=== PATIENT | male | born 1980 | race Caucasian/White ===

== ENCOUNTER → 2016-12-01 | Outpatient (REF) | payer OTHER | LOC: M LAB REF 16:52 | PROVIDERS: ATTEND Internal Medicine Nephrology | DX: R80.9 Proteinuria, unspecified (principal) ==

== ENCOUNTER → 2017-05-31 | Outpatient (REF) | payer OTHER ==
[2017-05-31 19:17] LABS: TOTAL PROTEIN,RANDOM URINE 24.4 MG/DL (0.0-12.0)
== END ==
LOC: M LAB REF 16:56
DX: R80.9 Proteinuria, unspecified (principal); N08 Glomerular disorders in diseases classified elsewhere
CPT/HCPCS: 84156

== ENCOUNTER → 2017-09-16 | Outpatient (REF) | payer OTHER ==
[2017-09-16 19:34] LABS: TOTAL PROTEIN,RANDOM URINE 30.9 MG/DL (0.0-12.0)
== END ==
LOC: M LAB REF 17:04
DX: R80.9 Proteinuria, unspecified (principal); N08 Glomerular disorders in diseases classified elsewhere
CPT/HCPCS: 84156

== ENCOUNTER → 2018-01-20 | Outpatient (REF) | payer OTHER ==
[2018-01-20 18:41] LABS: TOTAL PROTEIN,RANDOM URINE 20.2 MG/DL (0.0-12.0)
== END ==
LOC: M LAB REF 16:48
DX: R80.9 Proteinuria, unspecified (principal); N08 Glomerular disorders in diseases classified elsewhere
CPT/HCPCS: 84156

== ENCOUNTER → 2018-06-30 | Outpatient (CLI) | payer OTHER ==
--- NOTE | 2018-06-30 11:04 | REP ---
CT cervical spine without contrast HISTORY: Radiculopathy COMPARISON: None The patient is status post C4-C6 and to spinal fusion. Metal hardware is present. There is no acute fracture or subluxation. There is no disc bulge or herniation. Posterior osteophytes are present at the C4-5 and C5-6 levels. There is minimal narrowing of the spinal canal. Uncinate process hypertrophy is present on the right at the at the C5-6 level. This produces minimal narrowing of the right C5 neural foramen. The left C5 and remaining neural foramina are patent. The intervertebral discs and vertebral bodies are normal in height. There is no subluxation. IMPRESSION: 1. The patient is status post C 36 anterior spinal fusion. There is anatomic alignment. 2. There is cervical spondylosis at the C4-5 and C5-6 levels. Electronically Signed by Carlito Rivas MD 06/30/2018 10:56 A
== END ==
LOC: M RAD 10:11
PROVIDERS: ATTEND Surgery
DX: M47.812 Spondylosis without myelopathy or radiculopathy, cervical region (principal); Z98.1 Arthrodesis status

== ENCOUNTER → 2018-07-04 | Outpatient (REF) | payer OTHER | LOC: M LAB REF 17:20 | PROVIDERS: ATTEND Internal Medicine Nephrology | DX: R80.9 Proteinuria, unspecified (principal); N08 Glomerular disorders in diseases classified elsewhere ==

== ENCOUNTER → 2018-08-04 | Outpatient (CLI) | payer OTHER ==
--- NOTE | 2018-08-04 14:44 | PFTRPT ---
Site: [facility], [address] [place] [address], [id number] ID: [id number] Name: ZOFIA SCHULER Visit Date: 08/04/2018 Second ID: [id number] Referring Doctor: Juni Izaguirre MD Reviewing Doctor: Juni Izaguirre MD Call Manager: Augustus NOEL, KEYUR Age: 38 : 1980 Sex: Male Race: Height: 69.00 Inches Weight: 160.00 Lbs BSA: 1.88 Order IDs: [id number] Requested Test(s): <RESP-PFT.DLCO> Diagnosis: R06.02 of albuterol for postbronchodilator. Review Status: Not Reviewed Pre-Bronch Post-Bronch Pred Actual %Pred Actual %Chng SPIROMETRY FVC (L) 5.17 3.65 70 5.54 51 FEV1 (L) 4.14 2.77 66 4.50 62 FEV1/FVC (%) 80 76 94 81 6 FEF 25% (L/sec) 7.62 3.63 47 7.82 115 FEF 50% (L/sec) 5.04 2.38 47 7.09 197 FEF 75% (L/sec) 1.85 0.72 39 5.40 646 FEF 25-75% (L/sec) 3.98 1.70 42 6.75 296 FEF Max (L/sec) 9.98 5.33 53 7.91 48 FIVC (L) 3.03 5.01 65 FIF 50% (L/sec) 5.29 2.38 45 4.27 79 FIF Max (L/sec) 2.45 4.54 85 MVV (L/min) 165 23 14 Expiratory Time (sec) 6.15 6.79 10 Back Extrap Vol (L) 0.06 0.19 228 Time To FEFmax (sec) 0.082 0.142 72 LUNG VOLUMES SVC (L) 4.99 5.25 105 IC (L) 3.40 3.71 109 ERV (L) 1.59 1.54 96 TGV (L) 3.32 3.70 111 RV (Pleth) (L) 1.73 2.17 125 TLC (Pleth) (L) 6.72 7.42 110 RV/TLC (Pleth) (%) 26 29 112 DIFFUSION DLCOunc (ml/min/mmHg) 33.04 36.00 108 DLCOcor (ml/min/mmHg) 33.04 38.08 115 DL/VA (ml/min/mmHg/L) 4.92 5.71 116 VA (L) 6.72 6.66 99 BHT (sec) 10.04 IVC (L) 4.91 TLC (SB) (L) 6.81 AIRWAYS RESISTANCE Raw (cmH2O/L/s) 1.45 0.93 64 Gaw (L/s/cmH2O) 1.03 1.08 104 sRaw (cmH2O*s) 4.76 3.57 74 sGaw (1/cmH2O*s) 0.20 0.28 140 BLOOD GASES Hgb (gm/dL) 12.8
--- NOTE | 2018-08-10 08:28 | METHCHAL ---
DATE OF PROCEDURE: 08/04/2018 ORDERED BY: Dr. Izaguirre Spirometry: Pre and post bronchodilator study of excellent technical quality. Some difficulty with effort is noted. Forced vital capacity reduced. FEV1 generally in proportion. Obstructive index is, therefore, normal. Flow Volume Loop: Expiratory limb of the flow volume loop does suggest flow rate limitation. Very favorable bronchodilator response is identified. Lung Volumes: Total lung capacity normal. Residual volume is in proportion. Diffusing Capacity: Diffusing capacity minimally elevated. Hemoglobin: Hemoglobin acceptable at 12.8. Airway Mechanics: Airway resistance and conductance are normal. IMPRESSION: Reversible obstructive ventilatory defect. Please correlate clinically.
== END ==
LOC: M CARPUL 13:15
PROVIDERS: ATTEND Internal Medicine Pulmonary Disease
DX: R06.02 Shortness of breath (principal)

== ENCOUNTER → 2018-08-11 | Outpatient (CLI) | payer OTHER ==
--- NOTE | 2018-08-11 13:05 | REP ---
Clinical: Shortness of breath. Technique: Axial noncontrast images from the thoracic inlet to the upper abdomen with coronal and sagittal re-formations. Comparison: Chest x-ray dated 07/05/2018. Findings: Bilateral lung humphries are well-aerated and clear. No consolidation, significant nodule or mass lesion appreciated. No pleural effusion. No pneumothorax. Tracheobronchial tree is patent. No obvious adenopathy. The mediastinum demonstrates normal thoracic aorta, pulmonary vasculature and heart/pericardium. Focal atherosclerotic changes to the coronary arteries noted. Surrounding musculoskeletal structures are intact. Impression: No acute mediastinal or pleuroparenchymal process appreciated. No obvious chronic findings. Electronically Signed by Woo Cortes MD 08/11/2018 12:56 P
== END ==
LOC: M RAD 12:25
PROVIDERS: ATTEND Internal Medicine Pulmonary Disease
DX: R06.02 Shortness of breath (principal)

== ENCOUNTER → 2019-10-13 | Outpatient (REF) | payer OTHER ==
[2019-10-13 17:35] LABS: TOTAL PROTEIN,RANDOM URINE 40.5 MG/DL (0.0-12.0)
[2019-10-13 17:55] LABS: BACTERIA, URINE AUTO NEGATIVE (NEGATIVE); MUCUS, URINE SMALL (NEGATIVE); RBC, URINE AUTO 9 /HPF (0-3); SQUAMOUS EPITHELIAL CELL UR AU 0 /HPF (0-6); WBC, URINE AUTO 1 /HPF (0-3)
== END ==
LOC: M LAB REF 16:50
PROVIDERS: ATTEND Internal Medicine Nephrology
DX: N05.9 Unspecified nephritic syndrome with unspecified morphologic changes (principal)